=== PATIENT | female | born 1990 | race Caucasian/White ===

== ENCOUNTER → 2018-12-16 | Outpatient (CLI) | payer OTHER, SELFPAY ==
[2017-08-20 09:06] VITALS: BMI 32.2
[2018-12-16 19:51] LABS: Chlamydia Trachomatis by PCR Negative (Negative); Neisserai gonorrhoeae by PCR Negative (Negative); Probe Check PASS; Sample Adequacy Control PASS; Specimen Processing Control PASS
== END | disposition home or self-care (01) ==
PROVIDERS: Visit Provider Obstetrics & Gynecology
DX: Z11.3 Encounter for screening for infections with a predominantly sexual mode of transmission (principal)
CPT/HCPCS: 87491; 87591

== ENCOUNTER → 2019-05-12 | Outpatient (CLI) | payer OTHER, SELFPAY ==
[2019-05-12 08:00] LABS: Glucose GTT-Gestation. Fasting 85 mg/dL (<105)
[2019-05-12 10:16] LABS: Glucose GTT-Gestational 1 Hr 102 mg/dL (<190)
[2019-05-12 10:19] LABS: Glucose GTT-Gestational 2 Hr 118 mg/dL (<165)
[2019-05-12 11:53] LABS: Glucose GTT-Gestational 3 Hr 109 L (<145)
== END | disposition home or self-care (01) ==
PROVIDERS: Referring Provider Obstetrics & Gynecology; Visit Provider Obstetrics & Gynecology
DX: O24.912 Unspecified diabetes mellitus in pregnancy, second trimester (principal); Z3A.00 Weeks of gestation of pregnancy not specified
CPT/HCPCS: 36415; 82951; 82952

== ENCOUNTER 2019-07-27 06:55 | Inpatient (IN) | payer OTHER, SELFPAY ==
[2017-08-20 09:06] VITALS: BMI 32.2
[2019-07-27 07:25] VITALS: BMI 31.4
[2019-07-27] MEDS: Lactated Ringers 1,000 ML 50 ML IV (07:45)
[2019-07-27 08:36] LABS: Absolute Lymphocyte Count 2.41 X10^3/uL (0.83-4.51); Absolute Neutrophil Count 7.2 X10^3/uL (2.0-7.7); Basophil# 0.03 X10^3/uL; Basophil% 0.3 % (0-1); Eosinophil# 0.06 X10^3/uL; Eosinophils% 0.6 % (0-5); Hematocrit 37.2 % (37-47); Hemoglobin 12.3 g/dL (12.0-15.0); Lymphocyte # 2.41 X10^3/ul (4.0); Lymphocyte % 23.2 % (19-41); Mean Corp Hgb Conc 33.1 g/dL (32-36); Mean Corpuscular Hgb 29.2 pg (27.0-32.0); Mean Corpuscular Volume 88.4 fL (81-99); Mean Platelet Vol. 9.8 fl (6.2-12.0); Monocyte# 0.64 X10^3/uL; Monocyte% 6.2 % (0-10); NRBC Flagged by Analyzer 0 % (0-5); Neutrophil # 7.18 X10^3/uL (2.7-7.7); Platelet Count 229 K/mm3 (150-450); Red Blood Count 4.21 M/mm3 (4.2-5.4); White Blood Count 10.4 K/mm3 (4.4-11.0)
--- NOTE | 2019-07-27 08:37 | PCM.HPOB.BLA ---
History and Physical Date of Admission: 07/27/19 OB HISTORY AND PHYSICAL EXAMINATION History of this : 29 yo female Ab0 with EDC 07/21/2019 by Ultrasound, presents to Labor and Delivery for induction of labor at 40 6/7 wk EGA. care remarkable for : Rubella - 12/31/18 Group B Strep - Negative 06/23/19 1.) Pt comfortable with CNM or MD for PNC or Delivery 2.) Abn glucola 3.) TSH high 4.) MSAFP and CF testing declined 5.) Rapid 2nd stage with her son 6.) Prefers NO epidural Pertinent Past Medical History: Allergies: Doxycycline Medications: During - Vitamin 27 mg iron-800 mcg tablet Review of Systems: Non-contributory PHYSICAL EXAMINATION General Appearance: 29 yo female in no acute distress Vital Signs: AF, VSS Heart: RRR without rubs or gallops Lungs: CTA x 2 Breasts: deferred Abdomen: gravid Pelvis: Cervix: 2/75 mod firm, /2 anterior AROM performed with scalp lead after amniotomy hook. S Presentation: cephalic Station: Fetus: Size: AGA Movement: present Heart: present 130-140s avg variability. Accels. No UCs noted. Impression /Plan: Intrauterine . Admit for postdates induction of labor Amniotomy performed. Scalp lead placed. EFM reassuring, category I with no UCs. Advised pitocin if no inc labor within 2 hrs. Hoping no epidural. Declines med for now
[2019-07-27] MEDS: Oxytocin 30 units/NS 500 ml 30 UNITS/500 ML IV.SOLN IV (10:40)
[2019-07-27] MEDS: Ondansetron 4 MG/2 ML Vial IV (13:42)
[2019-07-27] MEDS: 0.9% Saline Lock 10 ML Syringe IV (13:42)
[2019-07-27] MEDS: Oxytocin 30 units/NS 500 ml 30 UNITS/500 ML IV.SOLN 334 UNITS IV (14:32)
--- NOTE | 2019-07-27 15:03 | PCM.OPRPT ---
Vaginal Delivery Maternal Presentation: Elective Induction - 41 weeks Method of Induction: Amniotomy Amniotic Membrane Rupture Type: Artificial Rupture of Membrane time: 0730 Amniotic Fluid Description: Clear Final DACIA: 07/21/19 Final DACIA Source: US <20 weeks Gestational age: 40 Weeks and 6 Days Date of Procedure: 07/27/19 Pre-Operative Diagnosis: 40 weeks gestation Post-Operative Diagnosis: S/P NVD Surgery/ Procedure Performed: Spontaneous Vaginal Delivery Type of Anesthesia: Local with 1% lidocaine - for repair Description of Procedure: Rapid active stage of labor. Started pushing with urgency of head descent at SVE 10/100/+3. head delivered OA to JOHN, followed by body spontaneously. Loose cord wrapped around body of viable male . Infant placed on maternal abdomen. Delayed cord clamping x2 minutes. Cord clamped x2 and cut by FOB with guidance of CNM. Pitocin started. Second degree left labial/perineal laceration repaired with a 3.0 vicryl after lidocaine 1% injected at site. Spontaneous delivery of placenta with 3 vessel cord by Ugarte mechanism. Fundal massage, firm. EBL 100ml. Presentation: Vertex, JOHN Placental Delivery Description: Spontaneous Placenta Disposition: [facility] Cord Vessel Description: 3 Vessels Cord Entanglement: None - Wrapped loosely over shoulders and body x1 Estimated Blood Loss: 100 Infant A gender: Male (1 minute): 8 (5 minute): 9 Episiotomy Description: None Laceration: Perineal Extension/lac, 2nd degree Medications given after delivery: IV Pitocin
[2019-07-27 19:50] VITALS: BP 106/65; PULSE 78; RESP 18; TEMP 36.8
[2019-07-27] MEDS: Ibuprofen 600 MG Tablet PO (22:40)
[2019-07-28] VITALS: BP 106/64; PULSE 68; RESP 18; TEMP 37.4
[2019-07-28 05:00] VITALS: BP 112/76; PULSE 74; RESP 18; TEMP 36.5
[2019-07-28] MEDS: Ibuprofen 600 MG Tablet PO (05:11)
[2019-07-28 08:25] VITALS: BP 109/70; PULSE 70; RESP 18; TEMP 37.1
[2019-07-28 13:05] VITALS: BP 112/62; PULSE 80; RESP 18; TEMP 36.7
--- NOTE | 2019-07-28 13:11 | PCM.PROGNOTE ---
Subjective: Pain well controlled, tolerating diet, passing flatus, well; spouse bedside and supportive Objective: AVSS Breasts filling, nipple atraumatic Fundus firm, midline, u/2, lochia small Perineal repair well approximated without redness, edema or drainage - Physical Exam Vitals/I&O's: Vital Signs Temp Pulse Resp BP 98.8 F 70 18 109/70 07/28/19 08:25 07/28/19 08:25 07/28/19 08:25 07/28/19 08:25 Weight: 201 lb 0.985 oz Body Mass Index (BMI) 31.4 Intake and Output for Last 24 Hours 07/26/19 07/27/19 07/28/19 23:59 23:59 23:59 Intake Total 1154.74 / 1154.74 Output Total 1450 / 1450 Balance -295.26 / -295.26 General: Alert, Oriented x3, Cooperative, No apparent distress HEENT: PERRLA, EOMI Oral: Moist Mucosa Neck: Supple Lungs: Clear to auscultation, Normal air movement Cardiovascular: Regular rate, Regular Rhythm Abdomen: Bowel Sounds Present, Soft, Non Tender, Non-Distended, Passing Flatus Extremities: No edema, Capillary Refill Less than 3 Seconds Skin: No rashes Musculoskeletal: No Tenderness to Palpation of Joints or Extremities Neurological: Cranial nerves II-XII grossly intact, Deep Tendon Reflexes 2+/4 and Symmetrical, Neuro grossly intact Psych/Mental Status: Normal Affect, Appropriate, Alert and oriented to time, place, person, mood and affect Current Medications Acetaminophen (Tylenol) 1,000 mg PO Q8H PRN PRN PRN Reason: Pain Score 1-3/10 Bisacodyl (Dulcolax) 10 mg RECTAL UD PRN PRN Reason: If no BM Dibucaine (Dibucaine) 1 applic TOPICAL TID PRN PRN; Protocol PRN Reason: Discomfort Hydrocortisone (Hytone) 1 applic TOPICAL TID PRN PRN; Protocol PRN Reason: Discomfort Ibuprofen (Motrin) 600 mg PO Q6H PRN PRN PRN Reason: Pain Score 1-3/10 Last Admin: 07/28/19 05:11 Dose: 600 mg Documented by: Methylergonovine Maleate (Methergine) 0.2 mg IM X1 PRN PRN Reason: Excess bleeding/uterine atony Oxycodone HCl (Oxyir) 5 - 10 mg PO Q4H PRN PRN PRN Reason: Pain Score 4-10/10 Senna/Docusate Sodium (Senokot-S, Irina-Colace) 1 - 2 tablet PO DAILY PRN PRN PRN Reason: Constipation Simethicone (Mylicon) 80 mg PO PCHS PRN PRN Reason: Indigestion/Stomach pain Zolpidem Tartrate (Ambien (Generic)) 5 mg PO QHS PRN PRN PRN Reason: Insomnia Medical Necessity - Tobacco Use Smoking Status: Never smoker Assessment/Plan All Active Problems (spontaneous vaginal delivery) (Acute) 39 weeks gestation of (Acute) Assessment: 29 yo G2now P2002 delivered at 40w6d gestation by 11w1d US PP Day #1, normal involution, normal course Plan: Discharge teaching completed Discharge home today 24 hr p/delivery RTO 6 weeks for checkup
--- NOTE | 2019-07-28 13:39 | DCINST_ITS ---
Discharge Diet: No Restrictions Discharge Activity: Return to Normal Activity, No Restrictions, May Drive, May not drive while taking narcotic pain medications., May Shower, May Take a Tub Bath Return to work on:: 09/01/19 May resume sexual activity in: 6 weeks Weight Bearing Status: Weight bearing as tolerated Lifting Restrictions: Nothing heavier than the baby for two weeks Additional Activity Instructions:: No cooking, cleaning, shopping or long car trips for two weeks; try to get at least 8 hours sleep in 24 hours over the first two weeks - sleep when the baby sleeps Call your doctor if your incision/area has: Continuous Slow Oozing, Sudden Increased Bleeding, Increased Pain/ Swelling, Increased Redness, Foul Smelling Discharge Call your doctor if you observe: Fever of 101 or Higher, Coldness, Increased Pain, Change in Color, Inability to urinate, Inability to have a bowel movement, Using more than one pad per hour, Shortness of breath, Dizziness, Fainting spells, Chest pain, Increased palpitations (irregular heartbeat), Calf discomfort, Uncontrolled pain Additional Instructions: If you experience any of the following, contact your healthcare provider. * Bleeding that soaks a pad every hour for 2 hours * Fever 100.4 or higher * Unrelieved incision or abdominal pain * Swelling, redness, discharge or bleeding from your incision or episiotomy site * Your incision begins to separate * Problems urinating (including inability to urinate or burning while urinating). * Visual changes * Severe headache * Flu-like symptoms * Pain or redness in one of both of your breasts * Pain, warmth, tenderness or swelling in your legs, especially the calf area * Frequent nausea and vomiting * Symptoms of depression or anxiety If you experience any of the following, call 911 or go to the nearest Emergency Room. * Chest pain * Problems breathing * Seizure activity * Partial or complete paralysis of a body part, slurred speech, weakness or drooping of the face, or a sudden inability to walk or hold your balance Allergies/Adverse Reactions: Allergies doxycycline Allergy (Verified 07/27/19 07:28) Rash Sulfa (Sulfonamide Antibiotics) Allergy (Verified 07/27/19 07:28) Rash Medications to take at Discharge Vit No.130/Iron/Folic [ Vitamins] 1 each PO DAILY 08/20/17 Famotidine [Pepcid] 20 mg PO BID 07/27/19 Please Follow Up With: Guerline Pires CNM When: six weeks for checkup Primary Care Physician: Care Physician,No Primary [Primary Care Provider] - Test Results: Test results from this visit will be discussed in further detail at your follow- up appointment, if applicable. Proposed Discharge Date: 07/28/19
== END 2019-07-28 17:05 | disposition home or self-care (01) | DRG 807 ==
PROVIDERS: Obstetrics & Gynecology; Admitting Provider Obstetrics & Gynecology; Referring Provider Obstetrics & Gynecology; Visit Provider Obstetrics & Gynecology
DX: O48.0 Post-term pregnancy (principal); Z37.0 Single live birth; Z3A.40 40 weeks gestation of pregnancy; O70.1 Second degree perineal laceration during delivery
CPT/HCPCS: 59025; 59050; 85025; 86850; 86900; 86901; 99218; J7120; A4216; G0378; J2405

== ENCOUNTER → 2024-07-11 | Outpatient (CLI) | payer OTHER, SELFPAY ==
--- NOTE | 2024-07-11 14:23 | US_ITS ---
INDICATION: right sided pain; hx ovarian cyst -- Transvag only due to cost EXAMINATION: Ultrasound US Transvaginal Non-OB TECHNIQUE: Transvaginal (for optimal evaluation of the adnexa) pelvic ultrasound was performed. Grayscale, spectral waveform, and color flow Doppler evaluation of the adnexa. COMPARISON: FINDINGS: UTERUS: Anteverted. The uterus measures 9.7 x 6.5 x 5.4 cm. There is no uterine mass. Nabothian cysts. The endometrial stripe measures 6.1 mm in AP diameter which is within normal limits. RIGHT OVARY: 3.0 x 2.2 x 2.0 cm. Follicles are noted. There is normal arterial inflow and venous outflow present in the right ovary. LEFT OVARY: 2.8 x 3.3 x 1.7 cm. Follicles are noted. There is normal arterial inflow and venous outflow present in the left ovary. FREE FLUID: None. US/Transvaginal Non- IMPRESSION: Bilateral follicles. Nabothian cysts. Electronically Signed: Brendon Fletcher DO at 8:41 EST ,
== END | disposition home or self-care (01) ==
PROVIDERS: Referring Provider Nurse Practitioner Family; Visit Provider Nurse Practitioner Family
DX: R10.2 Pelvic and perineal pain (principal); Z87.42 Personal history of other diseases of the female genital tract
CPT/HCPCS: 76830